=== PATIENT | female | born 1935 | race Caucasian/White ===

== ENCOUNTER 2018-03-14 19:16 | Observation (INO) | payer MEDICARE, OTHER ==
[2018-03-14 22:28] LABS: Troponin I Less than 0.010 ng/mL (< 0.028)
[2018-03-14] MEDS ORDERED: Acetaminophen 325 MG TAB PO PRN (23:51)
[2018-03-14] MEDS ORDERED: Ondansetron ODT 4 MG TAB SL PRN (23:51)
[2018-03-14] MEDS ORDERED: Ondansetron HCl/PF 4 MG/2 ML Vial IVP PRN (23:51)
[2018-03-15 00:14] LABS: Troponin I 0.013 ng/mL (< 0.028)
--- NOTE | 2018-03-15 01:32 | HP ---
DATE OF SERVICE: 03/14/2018 The patient was seen before midnight in the emergency room. PRIMARY CARE PHYSICIAN: Lei Edmond M.D. CHIEF COMPLAINT: Transfer from [facility] for chest pain. HISTORY OF PRESENT ILLNESS: An 82-year-old female with history of coronary artery disease with CABG as well as hypertension who went to local [facility] for evaluation of chest pain. She was having left-sided chest pain with radiation to left arm as well as left breast started around 2:0 0 p.m. The patient took aspirin before going to the emergency room. Her intensity of pain is about 6/10 when it started, but gradually decreased. She describes dull aching in nature, throbbing type. There was no specific aggravating or relieving factor. She denies any cough. She denies any fever or chills. She denies any urinary tract infection symptoms. She denies any relation of chest pain w ith food, respiration or activity. She was evaluated at local [facility]. Over there, she had routine blood test, which was normal. She had elevated D-dimer and that is why CT dissection protocol was done, which was negative for any dissection. There was patchy infiltrate in the right lower lobe. There was liver mass, which was consistent with the hemangioma. Her chest x-ray was nor mal. Her cardiac enzymes were negative. When I saw this patient in the emergency room at that time, patient was chest pain free. We decided to keep this patient in hospital for observation to rule ou t acute coronary syndrome. REVIEW OF SYSTEMS: The following complete review of systems was negative, unless otherwise mentioned in the HPI or below: Constitutional: Weight loss or gain, ability to conduct usual activities. Sk in: Rash, itching. Eyes: Double vision, pain. ENT/Mouth: Nose bleeding, neck stiffness, pain, ten derness. Cardiovascular: Palpitations, dyspnea on exertion, orthopnea. Respiratory: Shortness of breath, wheezing, cough, hemoptysis, fever or night sweats. Gastrointestinal: Poor appetite, abdomi nal pain, heartburn, nausea, vomiting, constipation, or diarrhea. Genitourinary: Urgency, frequency , dysuria, nocturia. Musculoskeletal: Pain, swelling. Neurologic/Psychiatric: Anxiety, depression . Allergy/Immunologic: Skin rash, bleeding tendency. Please see my HPI for pertinent positive and negative. All other review of systems reviewed and negative except as mentioned in the HPI. ALLERGIES: CODEINE SULFATE, PENICILLIN G. CURRENT HOME MEDICATIONS: Amlodipine 10 mg p.o. daily, aspirin 325 mg p.o. daily, Lipitor 40 mg p.o. at bedtime, Imdur 10 mg p.o. daily, lisinopril 5 mg p.o. daily, metoprolol tartrate 50 mg p.o. daily , allopurinol 100 mg p.o. daily, calcium 200 mg twice daily, Lyrica 150 mg twice daily. PAST MEDICAL HISTORY: Peripheral neuropathy, coronary artery disease with CABG, hypertension, divert iculosis, dyslipidemia, sensorineural deafness, history of nephrolithiasis, gout. PAST SURGICAL HISTORY: Appendicectomy, laser surgery for kidney stone, colon resection, CABG x3 in , hysterectomy, basal cell cancer removal from nose, bilateral cataract surgery, and bladder suspe nsion. PAST PSYCHIATRIC HISTORY: Reviewed and negative. FAMILY HISTORY: Brother by age of 37 from myocardial infarction. No family history of cancer o r stroke. SOCIAL HISTORY: The patient lives at home. She is taking care of her who has Alzheimer's de mentia. She is able to do all routine activities of daily life. She denies any tobacco, alcohol, or other illicit drug abuse. EMERGENCY ROOM COURSE: Reviewed. PHYSICAL EXAMINATION: VITAL SIGNS: On arrival, blood pressure 160/86, pulse 71, respiratory rate 16, temperature 98.4, sat uration 96%, blood pressure on the right arm 133/77, weight 57.6 kilograms. GENERAL: The patient is currently alert, awake, no obvious acute distress. HEENT: Normocephalic, atraumatic. Eyes: Pupils round, reactive to light. Extraocular muscle intac t. ENT: Oropharynx within normal limits. Moist mucous membrane, no oral lesion, no pharyngeal eryt lillian, no exudate. NECK: Supple, no JVD, no thyromegaly, no carotid bruit, no jugular venous distention. LUNGS: Clear to auscultation without any rhonchi or rales. CARDIAC: S1, S2 regular, soft systolic murmur noted, no gallop, no rub. ABDOMEN: Soft, bowel sounds present, nontender, nondistended. No organomegaly, no mass, no suprapub ic tenderness. BACK: Unremarkable, no CVA tenderness. EXTREMITIES: Upper extremities: Passive movement of all joints are normal. Lower extremities: No edema. Good peripheral pulsation, no calf tenderness. SKIN: No skin rash. HEMATOLOGICAL SYSTEM: No lymphadenopathy. PSYCHIATRIC: Normal affect. NEUROLOGIC: The patient is alert, oriented x3. Cranial nerves II-XII intact. Motor and sensation w ithin normal limits. No focal neurological deficit noted. SIGNIFICANT LABORATORY DATA: EKG showing right bundle branch block, left anterior fascicular block c onsistent with bifascicular block, LVH with repolarization changes. CT dissection protocol, no aorti c dissection or aneurysm, patchy infiltrate in the right lower lobe, hemangioma in the liver. Chest x-ray, no acute cardiopulmonary process. CBC: WBC of 5.7, hemoglobin 12.9, platelet 168. D-dimer 0 .97. BMP: Sodium 138, potassium 4.8, chloride 102, carbon dioxide 27, anion gap 14, BUN 20, creatin ine 0.91, glucose 126, calcium 9.9. LFT: AST 28, ALT 19, alkaline phosphatase 77, albumin 3.8, lipa se 30. Cardiac enzymes negative x3. BNP 120.9. ASSESSMENT AND PLAN/IMPRESSION: 1. Acute chest pain. Chest pain description is atypical. Her cardiac enzymes are negative x3. She has blood pressure discrepancy in both upper arms, but CT dissection protocol is negative. At this point, the patient has several risk factors for coronary artery disease and that is why we will perfo rm pharmacological stress test tomorrow morning for diagnostic reason. If that is negative, then we will consider discharging her home later on today. We will check lipid profile for risk stratificati on. Meanwhile, we will continue with the nitropatch q.8 hourly if blood pressure permits. We will c ontinue with aspirin 325 mg p.o. daily, Lipitor 40 mg p.o. at bedtime. We will hold on metoprolol fo r stress test and after that we will resume metoprolol 100 mg daily, along with lisinopril 20 mg p.o. daily. 2. Gout. We will continue allopurinol 100 mg p.o. daily. 3. Hypertension. We will continue amlodipine 5 mg p.o. daily, lisinopril 20 mg p.o. daily, nitropat ch q.8 hourly. We are holding metoprolol for stress test and then we will resume upon discharge. 4. Peripheral neuropathy. We will continue Lyrica 100 mg t.i.d. 5. Dyslipidemia. Check lipid profile tomorrow and continue Lipitor 40 mg p.o. at bedtime. 6. Coronary artery disease, currently stable. We will continue aspirin, statin therapy as well as A CE inhibitor and beta-blake therapy as per home dosage. 7. Deep venous thrombosis prophylaxis not needed because we are expecting discharge in 24 hours. 8. Gastrointestinal prophylaxis, Pepcid 20 mg p.o. b.i.d. 9. Code status: The patient is FULL CODE. The patient does not have any surrogate decision maker. Disposition plan based on clinical course. Patchy infiltrate in the right lower lobe. We will empirically finished Z-Luis Enrique upon discharge for 5 d ays to prevent any readmission from pneumonia.
[2018-03-15] MEDS ORDERED: Acetaminophen 325 MG TAB PO PRN (02:14)
[2018-03-15] MEDS ORDERED: Ondansetron ODT 4 MG TAB PO PRN (02:14)
[2018-03-15] MEDS ORDERED: Zolpidem Tartrate 5 MG TAB PO PRN (02:14)
[2018-03-15] MEDS ORDERED: Mag-Al 1200 mg/1200 mg/30 ML UDCUP PO PRN (02:14)
[2018-03-15] MEDS ORDERED: Milk Of Magnesia 30 ML UDCUP PO PRN (02:14)
[2018-03-15] MEDS ORDERED: Ondansetron HCl/PF 4 MG/2 ML Vial IVP PRN (02:14)
[2018-03-15] MEDS ORDERED: Loperamide HCl 2 MG CAP PO PRN (02:14)
[2018-03-15] MEDS ORDERED: Senokot 8.6 MG TAB PO PRN (02:14)
[2018-03-15] MEDS ORDERED: Nitroglycerin 0.4 MG TAB (25 Tab Bottle) PO PRN (02:16)
[2018-03-15] MEDS: Nitroglycerin 2% Ointment 1 INCH/1 GM Packet TOP SCH ×2 (03:31→14:14)
[2018-03-15 05:23] LABS: Cardiac Risk 2.4 (Less than 4.5)
[2018-03-15] MEDS ORDERED: Atorvastatin Calcium 40 MG TAB PO SCH ×2 (09:00→21:00)
[2018-03-15] MEDS ORDERED: Amlodipine 5 MG TAB PO SCH (09:00)
[2018-03-15] MEDS ORDERED: Aspirin 325 MG TAB PO SCH (09:00)
[2018-03-15] MEDS ORDERED: Allopurinol 100 MG TAB PO SCH (09:00)
[2018-03-15] MEDS ORDERED: Lisinopril 5 MG TAB PO SCH (09:00)
[2018-03-15] MEDS ORDERED: Famotidine 20 MG TAB PO SCH (09:00)
[2018-03-15] MEDS ORDERED: Azithromycin 250 MG TAB PO SCH (09:00)
[2018-03-15] MEDS ORDERED: Pregabalin 50 MG CAP PO SCH (09:00)
[2018-03-15] MEDS ORDERED: Amlodipine 10 MG TAB PO SCH (09:00)
[2018-03-15] MEDS ORDERED: Lisinopril 20 MG TAB PO SCH (09:00)
[2018-03-15 11:13] VITALS: BP 107/67
[2018-03-15 11:33] VITALS: TEMP 97.8
--- NOTE | 2018-03-15 12:21 | NM ---
RADIONUCLIDE STRESS AND REST MYOCARDIAL PERFUSION SCAN WITH CT ATTENUATION CORRECTION AND SPECT IMAGI NG: HISTORY: Chest pain. FINDINGS: Adenosine protocol was used. There is homogeneous uptake of radiotracer throughout the left ventricul ar myocardium without focal perfusion defect. QGS analysis of gated SPECT images shows no focal wall motion abnormalities. Ejection fraction is calculated at 80%. IMPRESSION: 1. Normal myocardial perfusion scan. 2. Normal LVEF. POS: [facility]
--- NOTE | 2018-03-15 13:41 | DIS ---
DATE OF ADMISSION: 03/14/2018 DATE OF DISCHARGE: 03/15/2018 PRIMARY CARE PHYSICIAN: Lei Edmond M.D. DISCHARGE DIAGNOSES: 1. Noncardiac chest pain. 2. Coronary artery disease without angina. 3. Essential hypertension. 4. Right basilar community-acquired atypical pneumonia. 5. Peripheral neuropathy. 6. Diverticulosis without diverticulitis. 7. Hyperlipidemia. 8. Sensorineural deafness. 9. History of nephrolithiasis. 10. History of gout. 11. Status post coronary artery bypass grafting. CONSULTATIONS: None. PROCEDURES: Nuclear cardiac stress test negative for reversible myocardial ischemia change and noted EF of 80%. HISTORY AND PHYSICAL: Ms. Schroeder is an 82-year-old female with a history of hypertension, peripher al neuropathy, coronary artery disease, status post CABG in 1994, presented in the emergency departcaro center at an outside facility for chest pain. She described a left-sided chest pain with radiation to th e left arm and breast starting around 1400 hours, took aspirin and went to the emergency department. Went from 6/10 and gradually decreased to aching dull throbbing nature. No cough or other respirato ry symptoms. Elevated D-dimer, so CT dissection was done and it was negative for any artery dissecti on or pulmonary embolus, but did show a patchy infiltrate in the right lower lobe. She was subsequen tly transferred here for further evaluation. HOSPITAL COURSE: The patient was seen and examined in our emergency department. Dr. Molly castro d the patient to observation overnight. Serial cardiac biomarkers were negative. Monitor was unrema rkable. EKG remained normal. On 03/15/2018, a nuclear cardiac stress testing was done that showed a n EF of 80% and no reversible ischemic defects and no EKG changes. The patient was discharged home w [facility] outpatient followup. DISCHARGE CONDITION: Stable. DISPOSITION: Discharge home via private vehicle. Discharge activity as per cardiopulmonary limits. DISCHARGE DIET: Heart healthy recommended. DISCHARGE MEDICATIONS: New medications: Azithromycin 250 mg tablets #4 one p.o. daily until gone. Medicines Resumed, 1. Allopurinol 100 mg daily. 2. Amlodipine 10 mg daily. 3. Aspirin 325 mg daily. 4. Atorvastatin 40 mg p.o. at bedtime. 5. Calcium citrate plus vitamin D3 one tablet b.i.d. 6. Isosorbide mononitrate 10 mg daily. 7. Lisinopril 5 mg daily. 8. Lyrica 150 mg p.o. b.i.d. FOLLOWUP: Follow up with Dr. Edmond within a week.
[2018-03-15] MEDS ORDERED: ADENOSINE 60 MG/20 ML VIAL ONE (14:14)
== END 2018-03-15 14:36 | disposition home or self-care (01) ==
LOC: ERS 19:16 → 2SW 20:40
PROVIDERS: ADMIT Internal Medicine; ATTEND Internal Medicine
DX: R07.89 Other chest pain (principal); I25.10 Atherosclerotic heart disease of native coronary artery without angina pectoris; I10 Essential (primary) hypertension; J18.9 Pneumonia, unspecified organism; G62.9 Polyneuropathy, unspecified; E78.5 Hyperlipidemia, unspecified; H90.5 Unspecified sensorineural hearing loss; K57.90 Diverticulosis of intestine, part unspecified, without perforation or abscess without bleeding; M10.9 Gout, unspecified; Z95.1 Presence of aortocoronary bypass graft; Z87.442 Personal history of urinary calculi; Z79.82 Long term (current) use of aspirin; Z79.899 Other long term (current) drug therapy
CPT/HCPCS: 78452; 80061; 84484; 93017; 99285; A9500; G0378; 36415; A4216; J0153

== ENCOUNTER 2018-09-03 00:43 | Observation (INO) | payer MEDICARE, OTHER ==
[2018-09-03 03:08] LABS: Troponin I 0.021 ng/mL (< 0.028)
[2018-09-03] MEDS ORDERED: Acetaminophen 325 MG TAB PO PRN ×2 (03:32→11:11)
[2018-09-03] MEDS ORDERED: Ondansetron PF 4 MG/2 ML Vial IVP PRN ×2 (03:32→11:11)
[2018-09-03] MEDS ORDERED: Ondansetron ODT 4 MG TAB SL PRN (03:32)
[2018-09-03] MEDS ORDERED: HYDROcodone/Acetaminophen 5/325 mg Tablet PO PRN ×4 (03:32→03:34)
[2018-09-03 04:00] VITALS: BMI 19.7
[2018-09-03 06:12] LABS: Troponin I 0.043 ng/mL (< 0.028)
[2018-09-03] MEDS ORDERED: hydrALAZINE 20 MG/ML VIAL SLOW IVP PRN (11:11)
[2018-09-03] MEDS ORDERED: Artificial Tears 18 DROP/0.9 ML EA EYE PRN (11:11)
[2018-09-03] MEDS ORDERED: Cepastat Lozenges 1 LOZ PO PRN (11:11)
[2018-09-03] MEDS ORDERED: Loratadine 10 MG TAB PO PRN (11:11)
[2018-09-03] MEDS ORDERED: Nitroglycerin 0.4 MG TAB (25 Tab Bottle) PO PRN (11:11)
[2018-09-03] MEDS ORDERED: Sodium Chloride 0.65% Nasal 44 ML BOT EA NARE PRN (11:11)
[2018-09-03] MEDS ORDERED: Loperamide HCl 2 MG CAP PO PRN (11:11)
[2018-09-03] MEDS ORDERED: Eucerin (Mineral Oil/Petrolatum,White) 30 gm Jar TOP PRN (11:11)
[2018-09-03] MEDS ORDERED: Bisacodyl 5 MG TAB PO PRN (11:11)
[2018-09-03] MEDS ORDERED: Zolpidem Tartrate 5 MG TAB PO PRN (11:11)
[2018-09-03] MEDS ORDERED: Diabetic Tussin 200 MG/10 ML UDCUP PO PRN (11:11)
[2018-09-03] MEDS ORDERED: Ondansetron ODT 4 MG TAB PO PRN (11:11)
[2018-09-03] MEDS ORDERED: Senokot S 8.6-50 MG TAB PO PRN (11:11)
[2018-09-03] MEDS ORDERED: Calcium Carbonate 500 MG ChewTAB PO PRN (11:11)
[2018-09-03] MEDS ORDERED: Bisacodyl 10 MG SUPP PR PRN (11:11)
[2018-09-03] MEDS ORDERED: Potassium Chloride 20 MEQ TAB PO SCH (12:45)
--- NOTE | 2018-09-03 13:18 | SS ---
PRIMARY CARE PHYSICIAN: Dr. Feli Odom. REASON FOR ADMISSION: Transfer from [facility] for chest pain. HISTORY OF PRESENT ILLNESS: This is an 83-year-old female, who has underlying history of hypertensio n, dyslipidemia, coronary artery disease with history of CABG, who initially went to [facility] for evaluation of chest pain. Patient reports that, at home around 8:00 p.m. yesterday when she was resting, she was experiencing substernal chest discomfort, which was pressure-like in nature without any radiation, without any association of nausea, vomiting, or diaphoresis. Chest pressure k ept getting worse and that is why she went to local [facility] around 10:00 p.m. where s he was evaluated with echocardiogram, which was normal. Troponin was negative. Patient was subseque ntly transferred to our emergency room for rule out ACS. She had third troponin slightly indetermina nt range. I saw this patient this afternoon. At that time, the patient was completely chest pain free. She wa nted to go home. We decided to repeat another troponin as well as D-dimer. The patient is completel y asymptomatic. Patient reports that this pain is related with her lot of stress. In May, her was transfe [facility]red to senior living and she is worried about everything. She denies any melena or hematochezia. Sh e denies any burning epigastric discomfort. She denies any UTI symptoms. She denies any dizziness, orthopnea, PND, or leg swelling. She denies any calf tenderness. She denies any immobility. She de nies any pleurisy. ALLERGIES: CODEINE SULFATE, PENICILLIN G. REVIEW OF SYSTEMS: The following complete review of systems was negative, unless otherwise mentioned in the HPI or below: Constitutional: Weight loss or gain, ability to conduct usual activities. Sk in: Rash, itching. Eyes: Double vision, pain. ENT/Mouth: Nose bleeding, neck stiffness, pain, te nderness. Cardiovascular: Palpitations, dyspnea on exertion, orthopnea. Respiratory: Shortness of breath, wheezing, cough, hemoptysis, fever, or night sweats. Gastrointestinal: Poor appetite, abdo montserrat pain, heartburn, nausea, vomiting, constipation, or diarrhea. Genitourinary: Urgency, frequen cy, dysuria, nocturia. Musculoskeletal: Pain, swelling. Neurologic/Psychiatric: Anxiety, depressi on. Allergy/Immunologic: Skin rash, bleeding tendency. Please see my HPI for pertinent positive an d negative. All other review of systems reviewed and negative except as mentioned in the HPI. CURRENT HOME MEDICATIONS: Amlodipine 10 mg daily, aspirin 325 mg p.o. daily, Lipitor 40 mg p.o. at b edtime, Imdur 30 mg daily, lisinopril 5 mg p.o. daily, metoprolol tartrate 50 mg daily, allopurinol 1 00 mg p.o. daily, Citracal 200 mg twice daily, Lyrica 150 mg p.o. b.i.d. PAST MEDICAL HISTORY: Peripheral neuropathy, coronary artery disease with history of CABG, hypertens ion, dyslipidemia, diverticulosis, sensorineural deafness, history of nephrolithiasis, history of gou t. PAST SURGICAL HISTORY: Appendicectomy, laser surgery for kidney stone, colon resection, CABG x3 in , hysterectomy, basal cell cancer removal from nose, bilateral cataract surgery, bladder suspensio n surgery. PAST PSYCHIATRIC HISTORY: Reviewed and negative. FAMILY HISTORY: Brother by age of 37 from [place]. No family history of cancer or stroke. SOCIAL HISTORY: Patient currently lives at home alone. Her is recently transferred to [facility]. She is able to do all routine activities of daily life. She does not have any tobacco, alc ohol, or illicit drug abuse. EMERGENCY ROOM COURSE: Reviewed. PHYSICAL EXAMINATION: VITAL SIGNS: On arrival, blood pressure 135/79, pulse 66, respiratory rate 17, temperature 98.0, sat uration 100% on room air, weight 57.1 kilograms. GENERAL: The patient is currently alert, awake, in no obvious acute distress. HEAD: Normocephalic, atraumatic. EYES: Pupils round, reactive to light. Extraocular muscle intact. ENT: Oropharynx within normal limits. Moist mucous membranes, no oral lesion, no pharyngeal erythem a, no exudate. NECK: Supple, no JVD, no thyromegaly, no carotid bruit. No jugular venous distention. LUNGS: Clear to auscultation without any rhonchi or rales. CARDIAC: S1 and S2 regular. Systolic murmur noted, no gallop, no rub. ABDOMEN: Soft, bowel sounds present, nontender, nondistended. No organomegaly, no mass, no suprapub ic tenderness. BACK EXAMINATION: Unremarkable. No CVA tenderness. EXTREMITIES: Upper extremities, passive movement of all joints are normal. Lower extremities, no ed sury. Good distal pulsation, no calf tenderness. PSYCHIATRIC: Normal affect. NEUROLOGIC: Nonfocal examination. SIGNIFICANT LABORATORY DATA: CBC: WBC 6.2, hemoglobin 13.6, platelets 138. BMP: Sodium 143, potas sium 3.4, chloride 102, carbon dioxide 31, BUN 17, creatinine 0.82, glucose 97, calcium 10.1. LFT: AST 25, ALT 19, alkaline phosphatase 69, albumin 4.0, lipase 124, CK-MB 1.4, troponin I 0.027, then 0 .021, and then 0.043. EKG showing complete right bundle branch block pattern, nonspecific ST-T [place] es, left axis deviation. ASSESSMENT AND PLAN: 1. Chest pain. Patient's chest pain description is atypical. She had acute onset of chest pain and 2 troponins were negative and third troponin is indeterminate range. She has underlying history of coronary artery disease. At this point, I will recheck patient's another troponin, and if troponin r emains indeterminant or normal, then patient does not need any further evaluation. This patient lenny aparicio had negative stress test in 03/2018. The patient already had echocardiography at Dr. Juan buck. Currently, we have excluded all possibility. We are not suspecting any thromboembolic disorder, but we will check D-dimer, and based on D-dimer, we will decide whether she needs any CT angiography or not. If both testing are normal, then most likely we will consider discharging her home later on today. Plan of care discussed with the patient and family member and they agreed with that plan. 2. Gout. Continue allopurinol 100 mg p.o. daily. 3. Dyslipidemia. Continue Lipitor 40 mg p.o. at bedtime. 4. Coronary artery disease with history of coronary artery bypass grafting, currently stable. Dimas nue aspirin 325 mg p.o. daily, Imdur 30 mg p.o. daily, lisinopril 10 mg p.o. daily. We will prescrib e nitroglycerin 0.4 mg sublingual as directed to use p.r.n. basis. 5. Peripheral neuropathy. Continue Lyrica 150 mg p.o. b.i.d. 6. Deep venous thrombosis prophylaxis not needed, because we are expecting discharge soon. 7. Gastrointestinal prophylaxis. Pepcid 20 mg p.o. b.i.d. 8. Elevated lipase. We will repeat her lipase again one more time. Currently, the patient does not have any epigastric discomfort. CODE STATUS: The patient is FULL CODE. Disposition plan likely today. DATE OF ADMISSION: 09/03/2018 at 1:35 a.m. DATE OF DISCHARGE: 09/03/2018 DISCHARGE DISPOSITION: Home. PRIMARY DISCHARGE DIAGNOSIS: 1. Chest pain, ruled out acute coronary syndrome. 2. Indeterminate troponin. 3. Hypokalemia. 4. Elevated lipase. SECONDARY DISCHARGE DIAGNOSES: Coronary artery disease with history of coronary artery bypass grafti ng, hypertension, mild protein-calorie malnutrition, dyslipidemia, peripheral neuropathy, generalized anxiety disorder, gout. PRIMARY PROCEDURES/OPERATIONS: None. RADIOLOGICAL INVESTIGATIONS: Chest x-ray was done at [facility], which was normal. SIGNIFICANT LABORATORY DATA: Please see my HPI above. DISCHARGE MEDICATIONS: Please see patient's home medications as above. We are adding nitroglycerin 0.4 mg sublingual p.r.n. basis to use for chest pain at home. CONTRAINDICATIONS: None. CODE STATUS: FULL CODE. INPATIENT CONSULTANTS: None. DISCHARGE PLAN: Post hospital, the patient will follow up with primary care physician. HOSPITAL COURSE: The patient was transferred from [place] for chest pain. Her troponins 2 times ne gative and third time was slightly indeterminant range. We repeated another troponin. Her lipase wa s elevated and that is why we are repeating lipase. We are checking D-dimer again, and if D-dimer is normal, then we will consider discharging her home later on today. If D-dimer is abnormal, then we will consider doing CT angiography to rule out thromboembolic disorder, which is extremely unlikely b ased on clinical presentation. The patient will continue all her previous home medication. Plan of care discussed with the patient and family member. The patient was admitted and discharged on the same day.
[2018-09-03 13:22] LABS: CKMB 1.3 ng/mL (0-6.6); Troponin I 0.017 ng/mL (< 0.028)
[2018-09-03 15:56] VITALS: BP 143/84; TEMP 98.5
[2018-09-03] MEDS ORDERED: Famotidine 20 MG TAB PO SCH (21:00)
[2018-09-03] MEDS ORDERED: Atorvastatin Calcium 40 MG TAB PO SCH (21:00)
[2018-09-03] MEDS ORDERED: Pregabalin 75 MG CAP PO SCH (21:00)
[2018-09-04] MEDS ORDERED: Enoxaparin Sodium 40 MG/0.4 ML SYRINGE SC SCH (09:00)
[2018-09-04] MEDS ORDERED: Lisinopril 10 MG TAB PO SCH (09:00)
[2018-09-04] MEDS ORDERED: Aspirin 325 MG TAB PO SCH (09:00)
[2018-09-04] MEDS ORDERED: Allopurinol 100 MG TAB PO SCH (09:00)
--- NOTE | 2018-09-04 15:15 | ADD-DIS ---
This patient was evaluated on the day of admission and she was discharged on the same day. When we r epeated cardiac enzymes, next cardiac enzymes came back negative and D-dimer was slightly elevated. She was on room air. She did not have any risk factor for pulmonary embolism or DVT and patient also did not want to go for CT angiography that is why we did not pursue that test. The patient was disc harged on that day.
== END 2018-09-03 16:33 | disposition home or self-care (01) ==
LOC: ERS 00:43 → IMCU/EMU 01:35
PROVIDERS: ADMIT Hospitalist; ATTEND Hospitalist
DX: R07.89 Other chest pain (principal); E78.5 Hyperlipidemia, unspecified; I25.10 Atherosclerotic heart disease of native coronary artery without angina pectoris; M10.9 Gout, unspecified; I10 Essential (primary) hypertension; G62.9 Polyneuropathy, unspecified; H90.5 Unspecified sensorineural hearing loss; Z79.82 Long term (current) use of aspirin; Z79.899 Other long term (current) drug therapy; Z88.0 Allergy status to penicillin; Z88.5 Allergy status to narcotic agent; Z95.1 Presence of aortocoronary bypass graft
CPT/HCPCS: 82553; 83690; 84484 ×2; 85379; 99285; G0378 ×2; 36415

== ENCOUNTER → 2020-05-14 | Day surgery (SDC) | payer MEDICARE, OTHER ==
[2020-05-13 12:10] VITALS: BMI 22.8
[~2020-05-14] MED LIST: Fentanyl 100 MCG/2 ML VIAL ONE; Midazolam HCl 2 mg/2 ml Vial ONE; Sodium Bicarbonate 2.5 MEQ/5 ML VIAL ONE
[2020-05-14 08:49] LABS: Prothrombin Time 12.8 sec (12.0-14.7)
[2020-05-14 09:37] VITALS: BP 91/53; TEMP 98.8
--- NOTE | 2020-05-14 11:13 | CT ---
CT-guided liver mass biopsy HISTORY: Enlarging liver mass. FINDINGS: After explaining the procedure and answering all questions, limited CT imaging of the abdom en was performed. Sterile technique, buffered local anesthesia, CT guidance, and an anterior approach were used to care fully advance a 17-gauge trocar needle into the large lobular mass at the inferior aspect of the right liver lobe. Position was confirmed with CT imaging. A total of 3 18-gauge 3 cm core specimens were obtained and sent to pathology for evaluation. Needle was removed. No evidence of complication. Patient tolerated the procedure well and was returned in unchanged condition. IMPRESSION : Technically successful CT-guided liver mass biopsy. Pathology is pending.
== END ==
LOC: RAD 08:21
PROVIDERS: ATTEND Internal Medicine Hematology & Oncology
PROC: 0FB03ZX Excision of Liver, Percutaneous Approach, Diagnostic (ICD-10-PCS; principal; 2020-05-14)
DX: C22.7 Other specified carcinomas of liver (principal); C22.1 Intrahepatic bile duct carcinoma; D63.8 Anemia in other chronic diseases classified elsewhere; I25.10 Atherosclerotic heart disease of native coronary artery without angina pectoris; E11.9 Type 2 diabetes mellitus without complications; Z88.0 Allergy status to penicillin; Z88.5 Allergy status to narcotic agent
CPT/HCPCS: 47000; 77012; 85610; 88307; 88341; 88342; J2250; J3010